=== PATIENT | male | born 1955 | race Caucasian/White ===

== ENCOUNTER 2022-08-19 10:02 | Emergency (ER) | payer MEDICARE, OTHER ==
[~2022-08-19] VITALS: Ht 175.3 cm; Wt 85.1 kg
[2022-08-19 11:40] VITALS: BP 134/93
== END 2022-08-19 11:42 | disposition home or self-care (01) ==
LOC: ED 10:02
DX: M70.22 Olecranon bursitis, left elbow (principal); Y93.H2 Activity, gardening and landscaping
CPT/HCPCS: 73080; 99283-25